=== PATIENT | male | born 1975 | race Caucasian/White ===

== ENCOUNTER 2021-12-23 18:42 | Emergency (ER) | payer OTHER, SELFPAY ==
[2021-12-23 19:02] VITALS: BP 152/99; PULSE 112; RESP 18; TEMP 37; O2SAT 99; BMI 31.6
--- NOTE | 2021-12-23 19:39 | CRLHL7_ITS ---
For Patients: As a result of the Cures Act, medical imaging exams and procedure reports are released immediately into your electronic medical record. You may view this report before your referring provider. If you have questions, please contact your health care provider. Indication: Injury Technique: Three views right 2nd finger Comparison: No comparison Findings: Soft tissue swelling. Normal alignment there may be a subtle transverse lucency along the proximal aspect of the 2nd finger distal phalanx which could reflect subtle fracture correlate with site of pain. Soft tissue defect along the nail bed. No radiopaque foreign body. Dictated by Josefina Linares MD @ 12/23/2021 8:40:57 PM (Electronically Signed)
--- NOTE | 2021-12-23 19:46 | ED.GENADULT ---
HPI - General Adult General Date Seen: 12/23/21 Chief complaint: Extremity Pain/Injury, Upper Stated complaint: RIGHT INDEX FINGER INJURY Time Seen by Provider: 12/23/21 19:06 Source: patient History of Present Illness HPI narrative: Patient is a 46-year-old male who does not know when his last tetanus was, who presents saying that he mainly to his right index finger in a compressor fan. He denies other injuries or complaints. Related Data Home Medications Medication Instructions Recorded Confirmed omeprazole 20 mg capsule,delayed 20 mg PO DAILY 12/23/21 12/23/21 release Allergies Allergy/AdvReac Type Severity Reaction Status Date / Time Penicillins Allergy Unknown Verified 12/23/21 19:07 Exam Narrative: Exam Narrative: Vital signs reviewed In general, an alert, nontoxic male. Extremities: Examination of the right hand shows a laceration of the distal index finger through part of the tip. The distal half of the nail is absent, and the tissue of the nail bed has been somewhat avulsed as well. There is a a 0.5 cm laceration which extends on the radial aspect of the finger partially into nail bed and then into the skin overlying just lateral to the nail bed. There is a linear very superficial abrasion on the finger pad which does not extend past the epidermis. The tip of the finger is well perfused and viable. The tip of the distal phalanx is not visible underneath the nail bed, but is easily palpated. Skin: Otherwise well perfused and intact. Const: Vital Signs, click to edit/add: Vital Signs - 24 hr 12/23/21 19:02 Temperature 98.6 F Pulse Rate [Left P ulse Oximeter] 112 H Respiratory Rate 18 Blood Pressure [Le ft Upper Arm] 152/99 H Pulse Oximetry 99 Oxygen Delivery Me thod Room Air Documenting provider has reviewed patient's vital signs: yes Course Course Hospital Course: Procedure note: I placed local anesthetic in the distal portion of the finger where I was able to repair the laceration. I cleaned this area as well as the nail bed with sterile water. I used [address] 3 simple interrupted superficial sutures to repair the laceration lateral to the nail bed. There was nothing in the nail bed that I could repair. A dressing was applied by the refrigeration service technician to include Gelfoam and tube gauze. Patient tolerated all this well without immediate complication. X-rays of the finger by my review are negative. We did pllace a finger splint over the dressing. Patient's tetanus was in 2014 so he is up-to-date as far as that goes. I would like him to be followed up by [facility] given that the distal phalanx is covered by minimal tissue underneath the nail bed. I think that that will be okay to heal as is but I just want them to evaluate to make sure that no further surgical repair is needed. I placed a referral online for him for [facility]. We will put him on Keflex to cover. Ibuprofen or Tylenol as needed. Return for signs of infection. Vital Signs Vital signs: Initial Vital Signs Temperature 98.6 F 12/23/21 19:02 Temperature Source Temporal Artery Scan 12/23/21 19:02 Pulse Rate 112 H 12/23/21 19:02 Respiratory Rate 18 12/23/21 19:02 Blood Pressure 152/99 H 12/23/21 19:02 Blood Pressure Mean 116 12/23/21 19:02 Blood Pressure Position Sitting 12/23/21 19:02 Pulse Oximetry 99 12/23/21 19:02 Oxygen Delivery Method 12/23/21 19:02 Vital Signs Temperature 98.6 F 12/23/21 19:02 Pulse Rate 112 H 12/23/21 19:02 Respiratory Rate 18 12/23/21 19:02 Blood Pressure 152/99 H 12/23/21 19:02 Pulse Oximetry 99 12/23/21 19:02 Oxygen Delivery Method 12/23/21 19:02 Temperature 98.6 F 12/23/21 19:02 Pulse Rate 112 H 12/23/21 19:02 Respiratory Rate 18 12/23/21 19:02 Blood Pressure 152/99 H 12/23/21 19:02 Pulse Oximetry 99 12/23/21 19:02 Oxygen Delivery Method 12/23/21 19:02 Discharge Plan Discharge Clinical Impression: Finger laceration Patient Disposition: Home, Self-Care Condition: Improved Instructions: Finger Laceration (ED) Additional Instructions: Antibiotics as prescribed. Follow up with [facility] as discussed. I put in a referral for you, but if you do not hear from them, the phone number is [phone]. Return for any signs of infection. Prescriptions: No Action omeprazole 20 mg capsule,delayed release(DR/EC) 20 mg PO DAILY Follow Up/Referrals: Kyrie Beltran MD [Primary Care Provider] - Stand Alone Forms: [employer] Info Instructions
[2021-12-23 20:41] VITALS: BP 152/99; PULSE 99; RESP 18; TEMP 37
== END 2021-12-23 20:42 | disposition home or self-care (01) ==
PROVIDERS: Emergency Provider Emergency Medicine; PCP Family Medicine
DX: S61.310A Laceration without foreign body of right index finger with damage to nail, initial encounter (principal); W26.9XXA Contact with unspecified sharp object(s), initial encounter
CPT/HCPCS: 12001; 73140; 99283

== ENCOUNTER 2022-12-25 15:55 | Outpatient (CLI) | payer OTHER, SELFPAY | END 2022-12-25 15:56 | disposition home or self-care (01) | PROVIDERS: PCP Family Medicine; Visit Provider Family Medicine | DX: I10 Essential (primary) hypertension (principal); E78.5 Hyperlipidemia, unspecified | CPT/HCPCS: 80048; 80061 ==

== ENCOUNTER 2023-10-31 14:03 | Outpatient (CLI) | payer OTHER, SELFPAY | END 2023-10-31 14:04 | disposition home or self-care (01) | PROVIDERS: PCP Family Medicine; Visit Provider Family Medicine | DX: E78.5 Hyperlipidemia, unspecified (principal); I10 Essential (primary) hypertension; E88.810 Metabolic syndrome; E73.9 Lactose intolerance, unspecified; Z13.1 Encounter for screening for diabetes mellitus; Z13.29 Encounter for screening for other suspected endocrine disorder | CPT/HCPCS: 80048; 80061; 84443 ==

== ENCOUNTER 2024-11-10 08:25 | Outpatient (CLI) | payer OTHER, SELFPAY | END 2024-11-10 08:26 | disposition home or self-care (01) | PROVIDERS: PCP Family Medicine; Visit Provider Family Medicine | DX: I10 Essential (primary) hypertension (principal); E78.5 Hyperlipidemia, unspecified | CPT/HCPCS: 80048; 80061 ==